=== PATIENT | male | born 1965 | race Caucasian/White ===

== ENCOUNTER → 2018-07-28 | Outpatient (CLI) | payer OTHER ==
[2018-07-28 08:42] LABS: Basophils % (A) 1 %; Eosinophils # (A) 0.2 k/uL (0-0.7); Eosinophils % (A) 3 %; Lymphocytes # (A) 1.3 k/uL (1.0-4.8); Lymphocytes % (A) 21 %; MCH 30.6 pg (25.0-35.0); MCV 89.9 fL (80.0-100.0); Mean Platelet Volume 6.3; Monocytes # (A) 0.4 k/uL (0-1.0); Monocytes % (A) 6 %; Neutrophils # (A) 4.3 k/uL (1.3-7.7); Neutrophils % (A) 68 %; Platelet Count 303 k/uL (150-450); RBC 5.23 m/uL (4.30-5.90); RDW 13.2 % (11.5-15.5); WBC 6.3 k/uL (3.8-10.6)
[2018-07-28 09:31] LABS: ALT 34 U/L (21-72); AST 28 U/L (17-59); Albumin 4.4 g/dL (3.5-5.0); Alkaline Phosphatase 87 U/L (38-126); Anion Gap 9 mmol/L; Blood Urea Nitrogen 21 mg/dL (9-20); Calcium 9.8 mg/dL (8.4-10.2); Carbon Dioxide 22 mmol/L (22-30); Chloride 108 mmol/L (98-107); Cholesterol 148 mg/dL (<200); Glucose 92 mg/dL (74-99); HDL Cholesterol 53 mg/dL (40-60); LDL Cholesterol,Calculated 80 mg/dL (0-99); Sodium 139 mmol/L (137-145); Total Bilirubin 0.3 mg/dL (0.2-1.3); Total Protein 7.1 g/dL (6.3-8.2); Triglycerides 76 mg/dL (<150)
[2018-07-28 09:46] LABS: T4, Free (Free Thyroxine) 0.94 ng/dL (0.78-2.19)
[2018-07-28 10:00] LABS: Prostate Specific Antigen 2.37 ng/mL (0.00-4.00)
== END | disposition home or self-care (01) ==
LOC: LABWHC1 07:33
PROVIDERS: ATTEND Family Medicine
DX: Z00.00 Encounter for general adult medical examination without abnormal findings (principal); F17.200 Nicotine dependence, unspecified, uncomplicated; Z23 Encounter for immunization
CPT/HCPCS: 36415; 80053; 80061; 84153; 84439; 84443; 85025

== ENCOUNTER → 2019-05-04 | Outpatient (CLI) | payer OTHER ==
--- NOTE | 2019-05-04 16:13 | US ---
EXAMINATION TYPE: US thyroid st tissue head/neck DATE OF EXAM: 05/04/2019 COMPARISON: NONE CLINICAL HISTORY: R22.0 Localized Swelling, mass. GLAND SIZE: Right Lobe: 3.4 x 1.6 x 1.5 cm Overall Parenchyma: homogenous Left Lobe: 3.6 x 1.5 x 1.3 cm Overall Parenchyma: homogeneous Isthmus Thickness: 0.2 cm NODULES RIGHT: # of nodules measured on right: 0 LEFT: # of nodules measured on left: 0 ISTHMUS: # of nodules measured in the isthmus: 0 Bilateral neck scanned, no evidence of lymphadenopathy. Patient was having swelling left lateral neck. Patient finished one course of antibiotics and states the swelling has subsided. The left lateral neck was scanned and there was not a definite abnormality noted. IMPRESSION: Unremarkable thyroid ultrasound. No suspicious sonographic finding.
== END | disposition home or self-care (01) ==
LOC: RADUSWWP 15:33
PROVIDERS: ATTEND Family Medicine
DX: R22.0 Localized swelling, mass and lump, head (principal)
CPT/HCPCS: 76536

== ENCOUNTER → 2022-10-29 | Outpatient (CLI) | payer BC ==
--- NOTE | 2022-10-29 09:54 | CT ---
EXAMINATION TYPE: CT elbow LT wo con DATE OF EXAM: 10/29/2022 COMPARISON: No radiographic correlation is available. HISTORY: 56-year-old male M25.522, left elbow pain TECHNIQUE: Contiguous axial scanning of the left elbow without IV contrast. Coronal and sagittal mariusz nstructions performed. 3-D reconstructions generated on a dedicated independent workstation. CT DLP: 193 mGycm Automated exposure control for dose reduction was used. FINDINGS: There is degenerative change particularly involving the radiocapitellar joint with significant joint space narrowing, subchondral cystic change, and marginal spurring. Additional but less in degree of degenerative change in the ulnar trochlear joint with prominent shantell inal spurring at both the coronoid process and olecranon tip. There appears to be a 1.7 x 1.0 x 0.8 c m bone fragment impacted within the olecranon fossa. Additional degenerative spurring at the radial ulnar articulation. Small posterior elbow joint effusion. No acute fracture, subluxation, or dislocation seen. Triceps and distal biceps tendon insertions appear intact. IMPRESSION: 1. DEGENERATIVE CHANGE THROUGHOUT THE RADIOCAPITELLAR, ULNOTROCHLEAR, AND PROXIMAL RADIOULNAR JOINTS. MOST EXTENSIVE WITHIN THE RADIOCAPITELLAR JOINT. 2. A 1.7 X 1.0 X 0.8 CM BONE FRAGMENT IMPACTED WITHIN THE OLECRANON FOSSA.
== END | disposition home or self-care (01) ==
LOC: RADCTMAIN 06:50
PROVIDERS: ATTEND Orthopaedic Surgery
DX: M19.022 Primary osteoarthritis, left elbow (principal)

== ENCOUNTER → 2023-03-10 | Outpatient (CLI) | payer BC ==
--- NOTE | 2023-03-13 15:26 | CTL ---
EXAMINATION TYPE: CT Low Dose Lung DATE OF EXAM ORDERED: 03/10/2023 HISTORY: 57-year-old male Z87.891, current smoker with 45 pack-year history. Lung cancer screening CT DLP: [address] CTDI: 2.14 mGy Automated exposure control for dose reduction was used. SCREENING VISIT: Annual follow-up COMPARISON: 01/15/2022 TECHNIQUE: Low dose computed tomography scan was performed through the chest with coronal and sagitta l reconstructions. CT DIAGNOSTIC QUALITY: Limited, but interpretable FINDINGS: Heart normal size without pericardial effusion. Ectatic ascending aorta 3.7 cm. Ectatic lower descending thoracic aorta 2.7 cm. Borderline caliber to the main right and left pulmonary arteries measuring up to 2.5 cm suggesting un derlying pulmonary hypertension. Borderline sized precarinal lymph node at 1.0 cm remains unchanged. Otherwise, no thoracic lymphadeno radha by CT size criteria. Mild to moderate diffuse bronchial wall thickening. Scattered mild biapical pleural parenchymal scarr ing. Minimal emphysematous change. * Associated nodularity, for example, measuring 5 mm at the posterior right apex remains unchanged a nd also relates to pleural parenchymal scarring. * 5 mm posterior right upper lobe pulmonary nodule, axial image 83 is unchanged. * No new pulmonary nodules is identified. No new since No consolidation or pleural effusion. Unchanged posterior right hepatic dome cyst measuring 2.6 cm. Bones: Unchanged stellate focus within the T6 vertebral body suggesting a bone island. Mild degenerat jessica disc disease mid to lower thoracic spine. IMPRESSION: 1. LungRADS 2, benign; COPD with mild emphysema, biapical pleural-parenchymal scarring, and a couple unchanged 5 mm pulmonary nodules. 2. Possible underlying pulmonary arterial hypertension. CT LUNG RAD AND CT CHEST RECOMMENDATION: Lung-Rad 2 Benign Appearance or Behavior: Continue annual sc reening with LDCT in 12 months. S Modifier (other clinically significant findings): None
== END | disposition home or self-care (01) ==
LOC: RADCTMAIN 12:41
PROVIDERS: ATTEND Internal Medicine
DX: Z12.2 Encounter for screening for malignant neoplasm of respiratory organs (principal); J43.9 Emphysema, unspecified; F17.210 Nicotine dependence, cigarettes, uncomplicated; J98.4 Other disorders of lung; R91.8 Other nonspecific abnormal finding of lung field
CPT/HCPCS: 71271